=== PATIENT | female | born 1935 | race Caucasian/White ===

== ENCOUNTER 2016-12-28 10:15 | Emergency (ER) | payer OTHER ==
[2016-12-28 10:17] VITALS: TEMP 36.8; Ht 170.2 cm
[2016-12-28] MEDS ORDERED: LORAZEPAM 0.5 MG TAB PO STA (10:25)
[2016-12-28 10:29] VITALS: O2SAT 100
--- NOTE | 2016-12-28 10:44 | EMERGENCY ROOM VISIT NOTE ---
History Report prepared by Hunter: Mckinley Reynolds Under the Supervision of: Dr. Jorge Mary M.D. First contact with patient: 10:19 Chief Complaint: CHEST PAIN Stated Complaint: CHEST PAIN Nursing Triage Summary: Pt has been staying in the hospital with for 2 days 2 days ago "I felt like my heart was beating harder" Pt c/o left breast pain and left nipple has become inverted Pt tearful and anxious on arrival History of Present Illness The patient is a 81 year old who presents to the Emergency Room with complaints of on and off left chest discomfort starting two nights ago. The patient states that two nights ago she felt like her heart was going fast, and then it went away. She states that it came back last night, and she is still currently feeling it. She states that she is additionally having some left breast pain, some shortness of breath, and some back pain. The patient denies having any fevers or chills, and she states that she is moving her bowels and urinating fine. She states that she has been drinking coffee, and she has not had anything to eat this morning. Source of History: patient Onset: twwo nights ago Position: chest Quality: other (discomfort) Timing: other (on and off) Associated Symptoms: + SOB, + back pain, No chills, No fevers, No urinary symptoms Note: Associated symptoms: Left breast pain Review of Systems All systems have been listed, reviewed, and are negative other than those previously mentioned. Please see Additional Medical History Sheet. Past Medical & Surgical Medical Problems: (1) Cysts Social History Smoking Status: Never Smoker Marital Status: Housing Status: lives with family Occupation Status: retired Current/Historical Medications Scheduled Acetaminophen (Tylenol), 650 MG PO BID Aspirin (Aspirin Ec), 81 MG PO DAILY Atorvastatin (Lipitor), 1 TAB PO DAILY Calcium Carbonate-Cholecalcife (Caltrate 600+D), 1 TAB PO BID Cholecalciferol (Vitamin D3), 1 CAP PO DAILY Cyanocobalamin (Vitamin B-12), 500 MCG PO DAILY Esomeprazole Magnesium (Nexium), 40 MG PO DAILY Fish Oil ([place]-3), 1 CAP PO DAILY Gabapentin (Neurontin), 300 MG PO TID Loratadine (Claritin), 10 MG PO DAILY Nortriptyline (Pamelor), 10 MG PO HS Vitamin E (E400), 800 UNITS PO DAILY Scheduled PRN Alprazolam (Xanax), 0.5-1 MG PO TID PRN for Anxiety Carboxymethylcellulose Sodium (Refresh Tears), 1 DROP OP UD PRN for DRYNESS Allergies Coded Allergies: Sulfa Antibiotics (Verified Allergy, Unknown, hives, 12/28/16) Physical Exam Vital Signs Date Time Temp Pulse Resp B/P Pulse Ox O2 Delivery O2 Flow Rate FiO2 12/28/16 12:36 86 20 146/90 100 12/28/16 11:20 81 20 167/86 100 Room Air 12/28/16 10:29 100 Room Air 12/28/16 10:21 82 12/28/16 10:17 36.8 90 20 187/103 98 Room Air Physical Exam GENERAL: Patient appears anxious and tearful. Patient awake, alert, oriented x 3. Patient follows commands. Patient does not appear toxic. Patient is adequately hydrated and well-nourished. SKIN: No erythema, pallor, cyanosis or rash HEENT: Normal head, pupils equal, reactive to light and accommodation. Oral cavity and posterior pharynx appear normal. Mucous membranes are dry. Neck: Without adenopathy, no neck vein distention. LUNGS: Clear to auscultation. No wheezes, no rales, no rhonchi. HEART: Regular rate with a split S2 CHEST: Left nipple is inverted. The right nipple is out. No skin changes or masses palpated. ABDOMEN: No masses, no rebound, no hepatomegaly or splenomegaly. EXTREMITIES: No signs of trauma. No pedal or pretibial edema. No calf or thigh tenderness. NEUROLOGIC: Cranial nerves II-XII within normal limits. No gross motor sensory function deficits. Medical Decision & Procedures ER Provider Diagnostic Interpretation: X ray results are stated below per my interpretation and the radiologist's interpretation. CHEST 2 VIEWS ROUTINE CLINICAL HISTORY: CHEST PAIN dyspnea COMPARISON STUDY: No previous studies for comparison. FINDINGS: Emphysematous change. Diaphragms smooth. No focal infiltrates. Old fracture midshaft right clavicle. IMPRESSION: Emphysematous change. No acute process. Electronically signed by: Cristobal Rao M.D. 12/28/2016 11:18 AM Dictated Date/Time: 12/28/2016 11:17 AM Laboratory Results 12/28/16 10:35 12/28/16 10:35 Test 12/28/16 10:35 Red Blood Count 4.27 M/uL (4.2-5.4) Mean Corpuscular Volume 90.9 fL (80-100) Mean Corpuscular Hemoglobin 31.1 pg (25-34) Mean Corpuscular Hemoglobin Concent 34.3 g/dl (32-36) RDW Standard Deviation 44.2 fL (36.4-46.3) RDW Coefficient of Variation 13.3 % (11.5-14.5) Mean Platelet Volume 9.4 fL (7.4-10.4) Anion Gap 6.0 mmol/L (3-11) Estimated GFR () 85.1 Estimated GFR (Non- 73.4 BUN/Creatinine Ratio 18.2 (10-20) Calcium Level 8.7 mg/dl (8.5-10.1) Troponin I < 0.015 ng/ml (0-0.045) Laboratory results as stated above per my review. Medications Administered Medications (Trade) Dose Ordered Sig/Les Route Start Time Stop Time Status Last Admin Dose Admin Lorazepam (Ativan Tab) 0.5 mg NOW STAT PO 12/28/16 10:25 12/28/16 10:28 DC 12/28/16 10:33 0.5 MG ECG Indication: chest pain Rate (beats per minute): 83 Rhythm: normal sinus Findings: no acute ischemic change, no ectopy ED Course 1019: Past medical records reviewed. The patient was evaluated in room B12. A complete history and physical examination was performed. 1025: Ativan Tab 0.5mg PO 1156: Upon reevaluation, the patient appeared to have improvement of her symptoms. I discussed today's findings with her. She verbalized agreement of the treatment plan. She was discharged home. Medical Decision I considered multiple diagnoses including anxiety, myocardial infarction, chest wall pain, pericarditis, myocarditis, aortic emergencies, pulmonary embolism, congestive heart failure, GI causes, and other significant cardiopulmonary disorders. The patient is here with nonspecific chest pain. She is extremely anxious and tearful. The patient slept in the hospital last night with her who just had back surgery. The patient appears to be overwhelmed by taking care of her . Multiple labs, EKG and imaging were performed today. Please see above. The patient has no evidence of an acute cardiopulmonary event. I believe that she can safely return home. She did feel better after getting 0.5 mg of Ativan. The patient has Alprazolam at home which she will continue taking. Impression Primary Impression: Non-cardiac chest pain Additional Impression: GENERALIZED ANXIETY DISORDER Scribe Attestation The scribe's documentation has been prepared under my direction and personally reviewed by me in its entirety. I confirm that the note above accurately reflects all work, treatment, procedures, and medical decision making performed by me. Departure Information Dispostion Home / Self-Care Forms HOME CARE DOCUMENTATION FORM, IMPORTANT VISIT INFORMATION Patient Instructions My [facility] Additional Instructions Continue taking all of your home medications as prescribed. You may take alprazolam every 6 hours as needed for anxiety. Follow-up with your family physician within the next 2 weeks. Problem Qualifiers
[2016-12-28 10:48] LABS: HEMATOCRIT 38.8 % (37-47); MEAN CELL VOLUME 90.9 fL (80-100); MEAN CORPUSCULAR HEMOGLOBIN 31.1 pg (25-34); MEAN CORPUSCULAR HGB CONC 34.3 g/dl (32-36); MEAN PLATELET VOLUME 9.4 fL (7.4-10.4); PLATELET COUNT 218 K/uL (130-400); RED BLOOD COUNT 4.27 M/uL (4.2-5.4)
[2016-12-28 11:04] LABS: BLOOD UREA NITROGEN 14 mg/dl (7-18); BUN/CREATININE RATIO 18.2 (10-20); CALCIUM 8.7 mg/dl (8.5-10.1); CARBON DIOXIDE 31 mmol/L (21-32); CHLORIDE 106 mmol/L (98-107); CREATININE 0.77 mg/dl (0.60-1.20); GLUCOSE 110 mg/dl (70-99); POTASSIUM 3.8 mmol/L (3.5-5.1); SODIUM 143 mmol/L (136-145)
--- NOTE | 2016-12-28 11:19 | DIAGNOSTIC IMAGING REPORT ---
CHEST 2 VIEWS ROUTINE CLINICAL HISTORY: CHEST PAIN dyspnea COMPARISON STUDY: No previous studies for comparison. FINDINGS: Emphysematous change. Diaphragms smooth. No focal infiltrates. Old fracture midshaft right clavicle. IMPRESSION: Emphysematous change. No acute process. Electronically signed by: Cristobal Rao M.D. 12/28/2016 11:18 AM Dictated Date/Time: 12/28/2016 11:17 AM
[2016-12-28] MEDS ORDERED: OMEG10007 PO (12:18)
[2016-12-28] MEDS ORDERED: CALC-354 PO (12:18)
[2016-12-28] MEDS ORDERED: CHOL2000 PO (12:18)
[2016-12-28] MEDS ORDERED: GABA-113 PO (12:18)
[2016-12-28] MEDS ORDERED: ATOR-26 PO (12:18)
[2016-12-28] MEDS ORDERED: NORT10CA2 PO (12:18)
[2016-12-28] MEDS ORDERED: ASPI81TA28 PO (12:18)
[2016-12-28] MEDS ORDERED: VITA1CAP5 PO (12:18)
[2016-12-28] MEDS ORDERED: CLR10 PO (12:18)
[2016-12-28] MEDS ORDERED: ALPR-411 PO (12:18)
[2016-12-28] MEDS ORDERED: NXM/40 PO (12:18)
[2016-12-28] MEDS ORDERED: ACET-1311 PO (12:29)
[2016-12-28] MEDS ORDERED: CARB0.5D28 OP (12:29)
[2016-12-28] MEDS ORDERED: CYAN500T PO (12:30)
[2016-12-28 12:36] VITALS: BP 146/90; PULSE 86; O2SAT 100
== END 2016-12-28 12:37 | disposition home or self-care (01) ==
LOC: EDBD 10:15 → C.EDB 10:19
DX: R07.89 Other chest pain (principal); F41.1 Generalized anxiety disorder; N64.4 Mastodynia; M54.9 Dorsalgia, unspecified; N64.59 Other signs and symptoms in breast; J43.9 Emphysema, unspecified; Z79.82 Long term (current) use of aspirin